=== PATIENT | male | born 1950 | race Caucasian/White ===

== ENCOUNTER 2022-04-28 09:33 | Outpatient (CLI) | payer MEDICARE ==
[2022-04-28] MEDS ORDERED: Magnevist 469MG/ML 20 ML VIAL ONE (11:03)
== END 2022-04-28 09:34 | disposition home or self-care (01) ==
LOC: CSHMRI 09:33
PROVIDERS: ATTEND Urology
DX: R97.20 Elevated prostate specific antigen [PSA] (principal); Z98.890 Other specified postprocedural states
CPT/HCPCS: 72197

== ENCOUNTER 2023-04-17 09:33 | Outpatient (CLI) | payer MEDICARE ==
[2023-04-17] MEDS ORDERED: Magnevist 469MG/ML 20 ML VIAL ONE (11:23)
== END 2023-04-17 09:34 | disposition home or self-care (01) ==
LOC: CSHMRI 09:33
PROVIDERS: ATTEND Urology
DX: C61 Malignant neoplasm of prostate (principal); N42.32 Atypical small acinar proliferation of prostate; Z98.890 Other specified postprocedural states
CPT/HCPCS: 72197; 82565; A9579

== ENCOUNTER 2024-03-18 08:15 | Outpatient (CLI) | payer MEDICARE ==
[2024-03-18] MEDS ORDERED: Magnevist 469MG/ML 20 ML VIAL ONE (13:50)
== END 2024-03-18 08:16 | disposition home or self-care (01) ==
LOC: CSHMRI 08:15
PROVIDERS: ATTEND Urology
DX: C61 Malignant neoplasm of prostate (principal)
CPT/HCPCS: 72197